=== PATIENT | male | born 1955 | race Caucasian/White ===

== ENCOUNTER 2017-05-26 03:28 | Emergency (ER) | payer MEDICARE, SELFPAY ==
[2017-05-26 03:31] VITALS: BP 167/95; PULSE 103; RESP 22; TEMP 36.3; O2SAT 97; BMI 28.1
--- NOTE | 2017-05-26 03:47 | ED.VISSUMM ---
- ER Visit Summary Date of Service: 05/26/17 Chief Complaint: Possible MRSA History of Present Illness: The patient is a 62 M who nicked his left index finger about a week ago. He does not remember exactly how this happened. 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 He states he took some Bactrim that a friend got some extra from a clinic. He is only taken 1 dose. Today he noticed a swollen lymph node in his left armpit so was more concerned and presented here. He has noticed increased pain and swelling over the last 2 days. He has noticed some drainage as well. He denies fevers nausea vomiting or systemic symptoms. Physical Examination: Afebrile heart rate 103 respiratory rate 22 There is an open wound over the pad of the left index finger with surrounding erythema and purulent drainage I do not appreciate fluctuance or circumferential swelling to suggest felon. Test Results: Not indicated Emergency Department Course and Treatment: Patient was placed on Keflex and Bactrim. He was advised to follow-up with his primary care physician. He understands to return for new or worsening symptoms. He was discharged. Treatment Plan: [] Disposition: Discharge Impression: Wound infection Cellulitis left index finger This note was generated with [employer] dictation software. It may contain incorrect words, spelling, and punctuation that were not noted in review of the chart prior to signing ED Disposition - Plan for ED Patient: Chief Complaint: Upper Extremity Injury Referrals: Care Physician,No Primary [Primary Care Provider] -
--- NOTE | 2017-05-26 03:49 | ED.DEP ---
ED Disposition - Plan for ED Patient: Chief Complaint: Upper Extremity Injury Instructions: ED Wound Check Laceration FU Infec, ED Infec Skin Cellulitis Prescriptions: Cephalexin [Keflex] 500 mg PO Q6 #40 cap Smz/Tmp Ds [Bactrim Ds] 1 tab PO BID #20 tab Referrals: Care Physician,No Primary [Primary Care Provider] - Dean Hernandez MD [Family Provider] -
[2017-05-26 04:12] VITALS: BP 160/90; PULSE 90; O2SAT 98
== END 2017-05-26 04:13 | disposition home or self-care (01) ==
LOC: ED 04:08
PROVIDERS: Emergency Provider Emergency Medicine; Family Provider Internal Medicine; PCP Internal Medicine
DX: S61.201A Unspecified open wound of left index finger without damage to nail, initial encounter (principal); L03.012 Cellulitis of left finger; R59.0 Localized enlarged lymph nodes; X58.XXXA Exposure to other specified factors, initial encounter; Y93.9 Activity, unspecified; Y92.9 Unspecified place or not applicable; Z86.14 Personal history of Methicillin resistant Staphylococcus aureus infection; Z86.79 Personal history of other diseases of the circulatory system; Z72.0 Tobacco use
CPT/HCPCS: 99282

== ENCOUNTER 2018-01-18 12:40 | Emergency (ER) | payer MEDICARE, SELFPAY ==
[2018-01-18 12:43] VITALS: BP 184/102; PULSE 98; RESP 18; TEMP 36.8; O2SAT 97; BMI 26.4
[2018-01-18 12:50] VITALS: BP 150/98; PULSE 97; RESP 18; O2SAT 97
[2018-01-18] MEDS: MethylPREDNISolone 125 MG/2 ML Vial IV (13:42)
[2018-01-18 13:45] VITALS: BP 147/81; PULSE 84; RESP 15; O2SAT 99
[2018-01-18 14:23] VITALS: BP 147/86; PULSE 84; RESP 16; O2SAT 95
[2018-01-18 15:07] VITALS: BP 153/81; PULSE 83; RESP 17; O2SAT 98
--- NOTE | 2018-01-18 16:04 | ED.VISSUMM ---
- ER Visit Summary Date of Service: 01/18/18 Chief Complaint: Bee sting History of Present Illness: The patient is a 62 M was eating a sandwich and did not notice to be, he got started on his tongue. He does not feel his throat swelling he has no change in voice. He had some itching on his skin but that has resolved. No nausea or vomiting. Physical Examination: Not appear in acute distress. There is slight swelling of the tongue and lips. Soft palate is unremarkable he is speaking in a normal voice he has no stridor. He is no other signs of edema. No C-spine tenderness supple neck. Regular rate and rhythm without any obvious murmurs Clear lungs bilaterally speaking in full sentences without any obvious respiratory distress Abdomen soft and nontender no guarding or rebound Moves all extremities without any difficulty or pain. Skin does not show any obvious rashes or lesions, no trauma. No urticaria Alert oriented ?3 with no gross focal deficit Emergency Department Course and Treatment: Patient does not meet criteria for anaphylaxis, he took Benadryl at home, he was given Solu-Medrol and Pepcid in the ED and observed his swelling is almost completely resolved he wishes to be discharged. He will be discharged in stable condition. Impression: Hymenoptera envenomation This note was generated with [employer] dictation software. It may contain incorrect words, spelling, and punctuation that were not noted in review of the chart prior to signing ED Disposition - Plan for ED Patient: Disposition: Home or Assisted Living Chief Complaint: Allergic Reaction Instructions: ED Bite Sting Insect Local Allergic React Referrals: Dean Hernandez MD [Primary Care Provider] - 3-5 Days
--- NOTE | 2018-01-18 16:07 | ED.DCSUM_ITS ---
- ER Visit Summary Date of Service: 01/18/18 Chief Complaint: Bee sting History of Present Illness: The patient is a 62 M was eating a sandwich and did not notice to be, he got started on his tongue. He does not feel his throat swelling he has no change in voice. He had some itching on his skin but that h as resolved. No nausea or vomiting. Physical Examination: Not appear in acute distress. There is slight swelling of the tongue and lips. Soft palate is unremarkable he is speaking in a normal voice he has no stridor. He is no other signs of edema. No C-spine tenderness supple neck. Regular rate and rhythm without any obvious murmurs Clear lungs bilaterally speaking in full sentences without any obvious respiratory distress Abdomen soft and nontender no guarding or rebound Moves all extremities without any difficulty or pain. Skin does not show any obvious rashes or lesions, no trauma. No urticaria Alert oriented ?3 with no gross focal deficit Emergency Department Course and Treatment: Patient does not meet criteria for anaphylaxis, he took Benadryl at home, he was given Solu-Medrol and Pepcid in the ED and observed his swelling is almost completely resolved he wishes to be discharged. He will be discharged in stable condition. Impression: Hymenoptera envenomation This note was generated with [employer] dictation software. It may contain incorrect words, spelling, and punctuation that were not noted in review of the chart prior to signing ED Disposition - Plan for ED Patient: Disposition: Home or Assisted Living Chief Complaint: Allergic Reaction Instructions: ED Bite Sting Insect Local Allergic React Referrals: Dean Hernandez MD [Primary Care Provider] - 3-5 Days
[2018-01-18 16:16] VITALS: BP 144/84; PULSE 73; RESP 17; O2SAT 97
== END 2018-01-18 16:17 | disposition home or self-care (01) ==
PROVIDERS: Emergency Provider Emergency Medicine; Family Provider Internal Medicine; PCP Internal Medicine
DX: T63.441A Toxic effect of venom of bees, accidental (unintentional), initial encounter (principal); R22.0 Localized swelling, mass and lump, head; Y92.9 Unspecified place or not applicable
CPT/HCPCS: 96365; 96374; 99282; J7030; A4216; J3490

== ENCOUNTER 2019-10-06 11:33 | Emergency (ER) | payer MEDICARE, SELFPAY ==
[2019-10-06 11:37] VITALS: BP 184/98; PULSE 109; RESP 18; TEMP 37.1; O2SAT 99; BMI 27.7
--- NOTE | 2019-10-06 12:04 | RAD_ITS ---
STUDY: X-RAY CHEST REASON FOR EXAM: Male, 64 years old. PT HAS DONE METH X 5 YEARS, LAST USE THIS MORNING, PARANOIA, TACHYCARDIA TECHNIQUE: Single AP portable view of the chest. COMPARISON: None. FINDINGS: The lungs are clear and expanded. There is no demonstrated pleural abnormality. Normal size heart. Normal mediastinum and jenny. Normal visualized pulmonary arteries. Normal visualized aortic arch and descending thoracic aorta. Normal visualized thoracic spine. Normal visualized ribs, clavicles, and shoulders. There is no demonstrated abnormality of the visualized soft tissue structures of the upper abdomen. RAD/Chest 1 View (Portable) IMPRESSION: Normal x-ray examination of the chest. Electronically Signed: Carlos Beasley MD at 12:46 EDT , Service support ,
--- NOTE | 2019-10-06 12:06 | ED.VIS.GEN ---
History of Present Illness Chief Complaint: Substance Abuse Informant: Patient Onset: Days Context: Gradual Onset Timing: Intermittent Narrative: Patient is a 64-year-old male with history of IV drug abuse presenting with intermittent auditory hallucinations. Patient states he has been using meth frequently over the past 3 days. He states he injects it. Patient states he has been hearing voices through the stern are plotting against him. Patient states he normally feels safe at home. He called 180 today who was not sure exactly how to handle him so they sent him to the emergency room. Patient denies any homicidal suicidal ideations. He also states that he is concerned he is dehydrated. Denies any associated chest pain, shortness of breath or difficulty breathing. He denies any other complaints at this time. He denies hearing any voices at this moment. Past Medical History - Allergies and Home Meds Allergies/Adverse Reactions: Allergies codeine Allergy (Verified 10/06/19 11:40) Unknown Primary Care Physician: Dean Hernandez MD [Primary Care Provider] - [employer] [STAFF PHYSICIAN] - Past Medical History: - - Chronic low back pain, drug abuse Surgical History: noncontributory Smoking Status: Current every day smoker Drugs: - - Methamphetamines Review of Systems General: Reports: Malaise. Denies: Chills, Fever, Sweats Eyes: Denies: Visual changes - bilaterally, Diplopia ENT: Denies: Rhinorrhea, Sore throat Cardiovascular: Denies: Chest pain, Palpitations Respiratory: Denies: Dyspnea, Cough, Dyspnea on exertion Gastrointestinal: Denies: Abdominal pain, Nausea, Vomiting, Diarrhea, Melena, Hematochezia Genitourinary: Denies: Dysuria, Hematuria, Frequency Musculoskeletal: Denies: Back pain, Extremity Pain Skin: Denies: Rash, Wounds Neurological: Denies: Headache, Weakness, Numbness Psych: Reports: Anxiety, - - Auditory hallucinations, paranoia. Denies: Depression, Suicidal thoughts, Suicidal ideations Physical Exam Vital Signs/Narrative: Vital Signs Temp Pulse Resp BP Pulse Ox 10/06/19 11:37 98.7 F 109 H 18 184/98 H 99 Inital Vital Signs reviewed: Yes General: Well nourished, Well developed, No Acute Distress Head: Normocephalic, Atraumatic Eyes: Perrl, EOMI ENT: Moist mucous membranes, No rhinorrhea, TM's clear Neck: Supple, Nontender Cardiovascular: Regular rhythm, No murmurs, Tachycardia Respiratory: No distress, CTA bilaterally, Chest nontender Abdomen: Soft, Nontender, Nondistended, Normal bowel sounds Back: Nontender, Normal Inspection Extremities: Nontender, No edema Skin: Normal color, No rash Neurological: Alert, Oriented x3, Cranial nerves II-XII grossly intact, Normal Strength, Normal Sensation Psychological: Normal affect, Normal Mood, - - Patient slightly anxious but behaving appropriately in the emergency room. Seems to have insight into his situation. Currently denies any auditory hallucinations and does not seem internally stimulated. Diagnostic/Tx/Re-eval Clinical Impression(s) from Imaging Studies Chest X-Ray 10/06/19 12:04 IMPRESSION: Normal x-ray examination of the chest. Electronically Signed: Carlos Beasley MD at 12:46 EDT , Service support , Laboratory Data 10/06/19 10/06/19 10/06/19 12:18 12:18 12:24 WBC RBC Hgb Hct MCV MCH MCHC RDW Std Deviation RDW Coeff of Cosmo Plt Count MPV Immature Gran % (Auto) Neut % (Auto) Lymph % (Auto) Mcminn % (Auto) Eos % (Auto) Baso % (Auto) Absolute Neuts (auto) Absolute Lymphs (auto) Nucleated RBC % Sodium 138 Potassium 3.2 L Chloride 105 Carbon Dioxide 27.0 Anion Gap 6 BUN 19 H Creatinine 0.74 Estim Creat Clear Calc 100.14 Est GFR (MDRD) Af Amer 139 Est GFR (MDRD) Non-Af 115 BUN/Creatinine Ratio 25.8 H Glucose 93 Calcium 9.1 Total Creatine Kinase TSH 1.41 Urine Color Yellow Urine Clarity Clear Urine pH 5.0 Ur Specific Eastman 1.020 Urine Protein 30 H Urine Glucose (UA) Normal Urine Ketones 5 H Urine Occult Blood 25 H Urine Nitrite Negative Urine Bilirubin Negative Urine Urobilinogen 1 H Ur Leukocyte Esterase 25 H Urine RBC 0-5 SEEN Urine WBC 0-5 SEEN Ur Squamous Epith Cells 0 SEEN Urine Bacteria 1+ Hyaline Casts 0-5 SEEN Urine Mucus 2+ Urine Opiates Screen NEGATIVE Urine Methadone Screen NEGATIVE Ur Barbiturates Screen NEGATIVE Ur Phencyclidine Scrn NEGATIVE Ur Amphetamines Screen POSITIVE H U Methamphetamin-MDMA POSITIVE H U Benzodiazepines Scrn NEGATIVE Urine Cocaine Screen NEGATIVE U Cannabinoids Screen NEGATIVE Ur Drug Screen Comment Ethyl Alcohol 10/06/19 10/06/19 10/06/19 12:24 12:24 12:24 WBC 7.1 RBC 4.77 Hgb 15.5 Hct 44.4 MCV 93.1 MCH 32.5 H MCHC 34.9 RDW Std Deviation 43.7 RDW Coeff of Cosmo 12.8 Plt Count 137 L MPV 9.3 Immature Gran % (Auto) 0.100 Neut % (Auto) 69.4 Lymph % (Auto) 18.1 L Mcminn % (Auto) 10.5 H Eos % (Auto) 1.5 Baso % (Auto) 0.4 Absolute Neuts (auto) 5.0 Absolute Lymphs (auto) 1.29 Nucleated RBC % 0 Sodium Potassium Chloride Carbon Dioxide Anion Gap BUN Creatinine Estim Creat Clear Calc Est GFR (MDRD) Af Amer Est GFR (MDRD) Non-Af BUN/Creatinine Ratio Glucose Calcium Total Creatine Kinase 283 TSH Urine Color Urine Clarity Urine pH Ur Specific Eastman Urine Protein Urine Glucose (UA) Urine Ketones Urine Occult Blood Urine Nitrite Urine Bilirubin Urine Urobilinogen Ur Leukocyte Esterase Urine RBC Urine WBC Ur Squamous Epith Cells Urine Bacteria Hyaline Casts Urine Mucus Urine Opiates Screen Urine Methadone Screen Ur Barbiturates Screen Ur Phencyclidine Scrn Ur Amphetamines Screen U Methamphetamin-MDMA U Benzodiazepines Scrn Urine Cocaine Screen U Cannabinoids Screen Ur Drug Screen Comment Ethyl Alcohol < 3.0 - Medical Decision Making Patient is evaluated for increase paranoia. Patient admits to associated methamphetamine abuse. Likely this is the cause of his paranoia. Physical exam is benign. He is able to concentrate answer questions appropriately. He denies any homicidal suicidal ideation. He states he wants help but does not want to go to inpatient psych at this time. Patient is evaluated by case management who also discussed the case with [facility]. Patient was at [facility] earlier today. Patient will be discharged home to follow-up at [facility] on day with his counselor, Darius Garcia. In addition he is encouraged to call [facility] throughout the weekend and on Wednesday as needed. Patient is given 1 dose of IV Ativan which seems to relax him significantly. Patient is medically cleared. I do not think he requires any inpatient medical work-up at this time. Patient's cousin will be able to stay with him and will pick him up from the ER. ED Disposition - Plan for ED Patient: Disposition: Home or Assisted Living Diagnosis: Methamphetamine abuse, Paranoia Instructions: ED AMPHETAMINE ABUSE Referrals: Dean Hernandez MD [Primary Care Provider] - [employer] [STAFF PHYSICIAN] - Additional Instructions: Follow-up with Darius Garcia at [facility]. Call to arrange an appointment. Call 180 for further drug abuse assistance. Return the emergency room with any worsening symptoms or if you do not feel safe at home.
[2019-10-06] MEDS: 0.9% Normal Saline 1,000 ML 999 ML IV (12:29)
[2019-10-06 12:31] LABS: Squamous Epithelial Cells - UA 0 SEEN /hpf (0-5)
[2019-10-06 12:32] LABS: Color, Urine Yellow (Yellow); Glucose, Dipstick Normal (Normal); Ketone-Dipstick 5 mg/dl (Negative); Leukocyte Esterase-Dipstick 25 /ul (Negative); Nitrite-Dipstick Negative (Negative); Occult Blood-Urine 25 /ul (Negative); Protein-Dipstick 30 mg/dl (Negative); Urine Bilirubin Dipstick Negative (Negative); Urine Clarity Clear (Clear); Urine Urobilinogen 1 mg/dl (Normal)
[2019-10-06 12:38] LABS: Bacteria 1+ /hpf (None Seen); White Blood Cells 0-5 SEEN /hpf (0-5)
[2019-10-06 12:39] LABS: Hyaline Cast 0-5 SEEN /lpf (0-5); Mucous, Urine 2+ /hpf (<or=2+); Red Blood Cells-Urine 0-5 SEEN /hpf (0-5)
[2019-10-06 12:39] LABS: Absolute Lymphocyte Count 1.29 X10^3/uL (0.83-4.51); Basophil# 0.03 X10^3/uL; Basophil% 0.4 % (0-1); Eosinophil# 0.11 X10^3/uL; Eosinophils% 1.5 % (0-5); Hematocrit 44.4 % (40-54); Hemoglobin 15.5 g/dL (13.0-16.5); Lymphocyte # 1.29 X10^3/ul (4.0); Lymphocyte % 18.1 % (19-41); Mean Corp Hgb Conc 34.9 g/dL (32-36); Mean Corpuscular Hgb 32.5 pg (27.0-32.0); Mean Corpuscular Volume 93.1 fL (80-94); Mean Platelet Vol. 9.3 fl (6.2-12.0); Monocyte# 0.75 X10^3/uL; Monocyte% 10.5 % (0-10); NRBC Flagged by Analyzer 0 % (0-5); Neutrophil # 4.95 X10^3/uL (2.7-7.7); Neutrophil % 69.4 % (47-70); Platelet Count 137 K/mm3 (150-450); RBC Distribution Width CV 12.8 % (11.6-14.6); RBC Distribution Width SD 43.7 fl (35.1-43.9); Red Blood Count 4.77 M/mm3 (4.6-6.2); White Blood Count 7.1 K/mm3 (4.4-11.0)
[2019-10-06 12:54] LABS: Amphetamine Urine VISTA POSITIVE (<1000 ng/mL); Barbiturate Urine VISTA NEGATIVE (< 200 ng/mL); Benzodiazepine Urine VISTA NEGATIVE (< 200 ng/mL); Cocaine Urine VISTA NEGATIVE (< 300 ng/mL); Ecstacy Urine VISTA POSITIVE (< 500 ng/mL); Methadone Urine VISTA NEGATIVE (< 300 ng/mL); PCP Urine VISTA NEGATIVE (< 25 ng/mL); THC Urine VISTA NEGATIVE (< 50 ng/mL); Vista UDS pH Range 5
[2019-10-06 13:01] LABS: Anion Gap 6 (5-15); BUN 19 mg/dL (7-18); BUN/Creat Ratio 25.8 RATIO (10-20); Calcium,Total 9.1 mg/dL (8.5-10.1); Chloride 105 mmol/L (98-107); Creatinine, Serum 0.74 mg/dL (0.70-1.30); EST Glomerular Filtration Rate 115 mL/min (>60); Est Glom Filt Rate - Afr Amer 139 mL/min (>60); Estimated Creatinine Clearance 100.14 ml/min; Glucose 93 mg/dL (74-106); Potassium 3.2 mmol/L (3.5-5.1); Sodium Level 138 mmol/L (136-145); Thyroid Stim Hormone (TSH) 1.41 uIU/mL (0.358-3.74)
[2019-10-06 13:02] LABS: Alcohol, Blood (Medical)-Serum < 3.0 mg/dL
[2019-10-06 13:12] LABS: CPK Total, Creatine Kinase 283 U/L (39-308)
[2019-10-06 13:50] VITALS: BP 174/92; RESP 18
--- NOTE | 2019-10-06 14:40 | CM.ED ---
SOCIAL WORK Informant: Dr. Wasserman Reason for Consult: Substance Abuse Chief complaint: Patient reports used bad meth. Living Situation: Patient lives in a camper on cousins property Employment: Disabled Mental Health Treatment/History: Patient denies any history of mental health. Substance Abuse Treatment/History: Patient for 20 years was addicted to crack cocaine. Patient states quit crack cocaine 5-7 years ago with the help of inpatient treatment at [facility]. Patient states for the last 5 years has had a history of meth use. Patient reports was in recovery from May till 3 days ago when he relapsed. Patient states last use of meth was this morning. Patient reports the meth was real trippy, not speedy. Patient states was having auditory and visual hallucinations. Patient reports these people were setting me up for different things. Patient states has been following with [facility] and was at [facility] today. Assessment: Met with patient in room. Introduced role and reason for referral. Patient discussed history of substance abuse. Patient stating I'm not 27 anymore. I gotta quit this. Much encouragement and support provided. Patient is on probation in [facility] and [facility]. Discussed outpatient treatment. Patient inquiring about inpatient treatment for meth. Informed patient this worker would follow up with inpatient facility. Patient also gave permission for this worker to speak with cousinSita ([phone]). Call to [facility]. Per Sita, patient with long history of substance abuse. Sita denies any mental health history for patient. Sita khan patient was released from half-way on May 26, disappeared for a few days and when he came back quit using substances. Sita [facility] patient is paranoid with use and states she has been researching meth use and addiction. Support provided. Informed this worker will provide patient with resources and per patient's request will look into inpatient treatment. Call to [facility] to inquire about detox program. Per worker, there is not detox for meth. As patient is not dual diagnosis, patient denies any history of mental health, does not meet criteria for admission. Updated patient on the above. Patient in agreement to follow up with outpatient services on Wednesday. Collaboration with Dr. Wasserman. Dr. Wasserman in agreement with outpatient follow up. Plan: Home with follow up at [facility] and [facility] Brian. Danuta, DENTAL ASSISTANT TEACHER, KIDS ACTIVITIES COACH
[2019-10-06 15:00] VITALS: BP 181/101; PULSE 104; RESP 18; O2SAT 100
[2019-10-06] MEDS: LORazepam 2 MG/ML Syringe 1 MG IV (15:15)
[2019-10-06 17:03] VITALS: BP 131/77; PULSE 62; RESP 15; O2SAT 98
== END 2019-10-06 17:04 | disposition home or self-care (01) ==
PROVIDERS: Emergency Provider Emergency Medicine; PCP Internal Medicine
DX: F15.10 Other stimulant abuse, uncomplicated (principal); F22 Delusional disorders; F17.200 Nicotine dependence, unspecified, uncomplicated
CPT/HCPCS: 71045; 80048; 80307; 80320; 81001; 82550; 84443; 85025; 96361; 96374; 99285; J7030; A4216; G0480

== ENCOUNTER 2020-03-20 07:29 | Emergency (ER) | payer MEDICARE, SELFPAY ==
[2020-03-20] VITALS (10 sets, daily range): BP systolic 111–194; BP diastolic 72–100; PULSE 93–120; RESP 15–40; TEMP 36.4; O2SAT 94–99; BMI 29.7
--- NOTE | 2020-03-20 07:48 | CT_ITS ---
STUDY: CT BRAIN WITHOUT CONTRAST REASON FOR EXAM: Male, 64 years old. ALTERED MENTAL STATUS -- COUGH/SOB -- +DRUG ABUSE TODAY--HEROIN/METH/SPEED RADIATION DOSAGE (If Supplied By Facility): CTDIvol = ( 44.99 ) mGy, DLP = ( 846.73 ) mGycm TECHNIQUE: Transaxial CT imaging of the brain was performed without administration of intravenous contrast material. Individualized dose optimization techniques were used for this CT. COMPARISON: No relevant priors. FINDINGS: Normal soft tissue structures. Normal calvarium. Normal size ventricles and extra-axial spaces for the patient''s age. Normal white matter tracts of the cerebral hemispheres. Normal basal ganglia and thalami. Normal brainstem. Normal cerebellum. There is no intracranial hemorrhage. There are no findings of an acute ischemic infarction. Normal visualized paranasal sinuses. CT/Brain/Head without Contrast IMPRESSION: Normal unenhanced CT scan of the brain. Electronically Signed: Roddy Mcguire, at 11:12 EST , Service support ,
--- NOTE | 2020-03-20 07:48 | EKG12_ITS ---
Test Reason : Blood Pressure : / mmHG Vent. Rate : 101 BPM Atrial Rate : 101 BPM P-R Int : 148 ms QRS Dur : 098 ms QT Int : 376 ms P-R-T Axes : 043 -51 048 degrees QTc Int : 487 ms Sinus tachycardia Left anterior fascicular block Inferior infarct , age undetermined Abnormal ECG Confirmed by SUE TORO, GERARD ([id number]), aeronautical engineering technologist CHERI GREENBERG ([id number]) on 03/22/2020 2:01:09 PM Referred By: PREETHI Confirmed By:GERARD ROGERS MD
--- NOTE | 2020-03-20 07:50 | ED.DCSUM_ITS ---
History of Present Illness Chief Complaint: Headache Informant: Patient Narrative: Limited history from the patient, he states that he is here because he was doing dope. When asked what drugs he was doing, he states what ever they had, probably meth but I do not know what it was. He answers questions, his volume starts normal and then it decreases to where he is mumbling quickly and it is unintelligible but he is keenly alert. When asked to repeat, he is telling me that he is frustrated, using expletives at me, because he is having to repeat things, and is somewhat agitated, lying down in the bed with his knees bent and feet hanging over the edge. He states he feels like his chest is heavy and he feels a little short of breath. He vomited earlier but does not feel nauseated anymore although that history changes during the interview. He cannot tell me anything about his past medical history. Past Medical History - Allergies and Home Meds Allergies/Adverse Reactions: Allergies codeine Allergy (Verified 10/06/19 11:40) Unknown Primary Care Physician: Dean Hernandez MD [Primary Care Provider] - Past Medical History: - - Unknown Smoking Status: Current every day smoker Drugs: - - Unknown Review of Systems ROS: Unable to Obtain - Limited evaluation, see below Cardiovascular: Reports: Chest pain Respiratory: Reports: Dyspnea. Denies: Cough Gastrointestinal: Reports: Nausea, Vomiting. Denies: Abdominal pain Musculoskeletal: Denies: Back pain, Extremity Pain Skin: Denies: Rash, Abscess Neurological: Reports: Headache - Mild per patient. Denies: Numbness Physical Exam Vital Signs/Narrative: Vital Signs Temp Pulse Resp BP Pulse Ox 03/20/20 07:32 97.5 F L 120 H 40 H 194/100 H 99 Inital Vital Signs reviewed: Yes General: Well nourished, Well developed, No Acute Distress Head: Normocephalic, Atraumatic Eyes: Perrl - Pinpoint pupils, EOMI ENT: Moist mucous membranes, No rhinorrhea Neck: Supple, Nontender Cardiovascular: Regular rate, Regular rhythm, No murmurs Respiratory: No distress, CTA bilaterally, Chest nontender Abdomen: Soft, Nontender, Nondistended, Normal bowel sounds Back: Nontender, Normal Inspection. Negative for: CVA tenderness Extremities: Nontender, No edema Skin: Normal color, No rash, Diaphoresis, No Trauma Neurological: Alert, Oriented x3 - Two-thousand f'ing twenty, Cranial nerves II-XII grossly intact, Normal Strength, Normal Sensation Psychological: Agitated - But cooperative to some degree and not combative. No specific movements/chorea/posturing or tardive dyskinesia. Diagnostic/Tx/Re-eval Impressions Brain CT 03/20/20 07:48 IMPRESSION: Normal unenhanced CT scan of the brain. Electronically Signed: Roddy Mcguire, at 11:12 EST , Service support , Chest X-Ray 03/20/20 08:38 IMPRESSION: Normal x-ray examination of the chest. Electronically Signed: Roddy Mcguire, at 9:03 EST , Service support , 03/20/20 07:48 Brain/Head without Contrast [CT] Stat 03/20/20 08:38 Chest 1 View (Portable) [RAD] Stat 03/20/20 08:01 Mucosa - Nose SARS-CoV-2 Antigen (Rapid) - Final - NEGATIVE Laboratory Tests 03/20/20 03/20/20 03/20/20 Range/Units 14:40 14:40 09:50 WBC (4.4-11.0) K/mm3 RBC (4.6-6.2) M/mm3 Hgb (13.0-16.5) g/dL Hct (40-54) % MCV (80-94) fL MCH (27.0-32.0) pg MCHC (32-36) g/dL RDW Std Deviation (35.1-43.9) fl RDW Coeff of Cosmo (11.6-14.6) % Plt Count (150-450) K/mm3 MPV (6.2-12.0) fl Immature Gran % (Auto) (0.0-0.9) % Neut % (Auto) (47-70) % Lymph % (Auto) (19-41) % Vance % (Auto) (0-10) % Eos % (Auto) (0-5) % Baso % (Auto) (0-1) % Absolute Neuts (auto) (2.0-7.7) X10^3/uL Absolute Lymphs (auto) (0.83-4.51) X10^3/uL Nucleated RBC % (0-5) % Sodium (136-145) mmol/L Potassium (3.5-5.1) mmol/L Chloride (98-107) mmol/L Carbon Dioxide (21.0-32.0) mmol/L Anion Gap (5-15) BUN (7-18) mg/dL Creatinine (0.70-1.30) mg/dL Estim Creat Clear Calc ml/min Est GFR (MDRD) Af Amer (>60) mL/min Est GFR (MDRD) Non-Af (>60) mL/min BUN/Creatinine Ratio (10-20) RATIO Glucose (74-106) mg/dL Calcium (8.5-10.1) mg/dL Total Bilirubin (0.20-1.00) mg/dL AST (15-37) U/L ALT (16-61) U/L Alkaline Phosphatase (45-117) U/L Troponin I (<0.045) ng/mL Total Protein (6.4-8.2) g/dL Albumin (3.2-5.0) g/dL Globulin (2.2-4.2) g/dL Albumin/Globulin Ratio (0.9-2.4) RATIO Urine Color Yellow (Yellow) Urine Clarity Sl. Cloudy (Clear) Urine pH 5.0 (5.0 - 8.0) Ur Specific [place] 1.030 (1.002-1.030) Urine Protein 30 H (Negative) mg/dl Urine Glucose (UA) Normal (Normal) mg/dl Urine Ketones 50 H (Negative) mg/dl Urine Occult Blood 10 H (Negative) /ul Urine Nitrite Negative (Negative) Urine Bilirubin Negative (Negative) mg/dL Urine Urobilinogen Normal (Normal) mg/dl Ur Leukocyte Esterase 25 H (Negative) /ul Urine RBC 0-5 SEEN (0-5) /hpf Urine WBC 0-5 SEEN (0-5) /hpf Ur Squamous Epith Cells 0-5 SEEN (0-5) /hpf Urine Bacteria 1+ (None Seen) /hpf Hyaline Casts 0-5 SEEN (0-5) /lpf Urine Mucus 1+ (<or=2+) /hpf Urine Opiates Screen NEGATIVE (< 300 ng/mL) Urine Methadone Screen NEGATIVE (< 300 ng/mL) Ur Barbiturates Screen NEGATIVE (< 200 ng/mL) Ur Phencyclidine Scrn NEGATIVE (< 25 ng/mL) Ur Amphetamines Screen POSITIVE H (<1000 ng/mL) U Methamphetamin-MDMA POSITIVE H (< 500 ng/mL) U Benzodiazepines Scrn NEGATIVE (< 200 ng/mL) Urine Cocaine Screen NEGATIVE (< 300 ng/mL) U Cannabinoids Screen NEGATIVE (< 50 ng/mL) Ur Drug Screen Comment Ethyl Alcohol < 3.0 mg/dL 03/20/20 03/20/20 Range/Units 09:50 09:50 WBC 7.9 (4.4-11.0) K/mm3 RBC 4.55 L (4.6-6.2) M/mm3 Hgb 14.8 (13.0-16.5) g/dL Hct 41.6 (40-54) % MCV 91.4 (80-94) fL MCH 32.5 H (27.0-32.0) pg MCHC 35.6 (32-36) g/dL RDW Std Deviation 44.7 H (35.1-43.9) fl RDW Coeff of Cosmo 13.2 (11.6-14.6) % Plt Count 119 L (150-450) K/mm3 MPV 10.8 (6.2-12.0) fl Immature Gran % (Auto) 0.300 (0.0-0.9) % Neut % (Auto) 79.6 H (47-70) % Lymph % (Auto) 11.9 L (19-41) % Vance % (Auto) 6.6 (0-10) % Eos % (Auto) 1.3 (0-5) % Baso % (Auto) 0.3 (0-1) % Absolute Neuts (auto) 6.3 (2.0-7.7) X10^3/uL Absolute Lymphs (auto) 0.94 (0.83-4.51) X10^3/uL Nucleated RBC % 0 (0-5) % Sodium 139 (136-145) mmol/L Potassium 4.3 (3.5-5.1) mmol/L Chloride 108 H (98-107) mmol/L Carbon Dioxide 24.0 (21.0-32.0) mmol/L Anion Gap 7 (5-15) BUN 22 H (7-18) mg/dL Creatinine 1.00 (0.70-1.30) mg/dL Estim Creat Clear Calc 71.61 ml/min Est GFR (MDRD) Af Amer 97 (>60) mL/min Est GFR (MDRD) Non-Af 80 (>60) mL/min BUN/Creatinine Ratio 22.0 H (10-20) RATIO Glucose 103 (74-106) mg/dL Calcium 8.8 (8.5-10.1) mg/dL Total Bilirubin 1.30 H (0.20-1.00) mg/dL AST 36 (15-37) U/L ALT 33 (16-61) U/L Alkaline Phosphatase 61 (45-117) U/L Troponin I < 0.015 (<0.045) ng/mL Total Protein 8.3 H (6.4-8.2) g/dL Albumin 4.2 (3.2-5.0) g/dL Globulin 4.1 (2.2-4.2) g/dL Albumin/Globulin Ratio 1.0 (0.9-2.4) RATIO Urine Color (Yellow) Urine Clarity (Clear) Urine pH (5.0 - 8.0) Ur Specific [place] (1.002-1.030) Urine Protein (Negative) mg/dl Urine Glucose (UA) (Normal) mg/dl Urine Ketones (Negative) mg/dl Urine Occult Blood (Negative) /ul Urine Nitrite (Negative) Urine Bilirubin (Negative) mg/dL Urine Urobilinogen (Normal) mg/dl Ur Leukocyte Esterase (Negative) /ul Urine RBC (0-5) /hpf Urine WBC (0-5) /hpf Ur Squamous Epith Cells (0-5) /hpf Urine Bacteria (None Seen) /hpf Hyaline Casts (0-5) /lpf Urine Mucus (<or=2+) /hpf Urine Opiates Screen (< 300 ng/mL) Urine Methadone Screen (< 300 ng/mL) Ur Barbiturates Screen (< 200 ng/mL) Ur Phencyclidine Scrn (< 25 ng/mL) Ur Amphetamines Screen (<1000 ng/mL) U Methamphetamin-MDMA (< 500 ng/mL) U Benzodiazepines Scrn (< 200 ng/mL) Urine Cocaine Screen (< 300 ng/mL) U Cannabinoids Screen (< 50 ng/mL) Ur Drug Screen Comment Ethyl Alcohol mg/dL - Rhythm Strip Rhythm Strip: Sinus Tach Rate: 110 Ectopy: None - EKG Initial EKG Interpretation: No Acute Injury Pattern, Sinus Tachycardia, LAFB Prior: No Prior - Medical Decision Making Patient was very agitated and we were not able to complete medical screening exam due to his agitation and relative lack of cooperation. This includes obtaining an IV, blood work, imaging. Therefore he was given Ativan 2 mg IM which did help, and we then proceeded to complete the work-up which was unremarkable with the exception of urine drug screen since we were not given a urine specimen. His vital signs improved as follows: Blood pressure 145/72, pulse 93, respirations 16, pulse ox 95 on room air, temp 97.5. His blood pressure came down to this, and was even in the 120s at one point, without giving him labetalol, that was held. Initially his blood pressure was extremely high in the 190s, and certainly there was concern for cerebral hemorrhage given his condition although CT ruled that out. I reexamination after the patient slept through the lorazepam, he is still little disoriented but able to respond to questions, but he was not able to urinate and was okay with a straight cath which nurses performed. This showed presence of methamphetamine. No sign of urinary tract infection. At this time when the patient is coherent enough to walk and talk on his own, he can call for a ride home. ED Disposition - Plan for ED Patient: Disposition: Home or Assisted Living Diagnosis: Methamphetamine abuse, Delirium due to methamphetamine intoxication Instructions: ED Drug Abuse Referrals: Dean Hernandez MD [Primary Care Provider] - As Needed [facility] [STAFF PHYSICIAN] - As Needed (for addiction issues/help)
--- NOTE | 2020-03-20 08:38 | RAD_ITS ---
STUDY: X-RAY CHEST REASON FOR EXAM: Male, 64 years old. Coughing, c/o rowan, nausea, sob TECHNIQUE: Single AP portable view of the chest. COMPARISON: Comparison is made with prior study dated 10/06/2019. FINDINGS: EKG electrodes are seen. The lungs are clear and expanded. There is no demonstrated pleural abnormality. Normal size heart. Normal mediastinum and jenny. Normal visualized pulmonary arteries. Normal visualized aortic arch and descending thoracic aorta. Normal visualized thoracic spine. Normal visualized ribs, clavicles, and shoulders. There is no demonstrated abnormality of the visualized soft tissue structures of the upper abdomen. RAD/Chest 1 View (Portable) IMPRESSION: Normal x-ray examination of the chest. Electronically Signed: Roddy Mcguire, at 9:03 EST , Service support ,
[2020-03-20] MEDS: LORazepam 2 MG/ML Syringe IM (08:39)
[2020-03-20] MEDS: Labetalol (Prefilled) 20 MG/4 ML 10 MG IV (10:00)
[2020-03-20 10:05] LABS: Absolute Lymphocyte Count 0.94 X10^3/uL (0.83-4.51); Absolute Neutrophil Count 6.3 X10^3/uL (2.0-7.7); Basophil# 0.02 X10^3/uL; Basophil% 0.3 % (0-1); Eosinophils% 1.3 % (0-5); Hematocrit 41.6 % (40-54); Hemoglobin 14.8 g/dL (13.0-16.5); Lymphocyte # 0.94 X10^3/ul (4.0); Lymphocyte % 11.9 % (19-41); Mean Corp Hgb Conc 35.6 g/dL (32-36); Mean Corpuscular Hgb 32.5 pg (27.0-32.0); Mean Corpuscular Volume 91.4 fL (80-94); Mean Platelet Vol. 10.8 fl (6.2-12.0); Monocyte# 0.52 X10^3/uL; Monocyte% 6.6 % (0-10); NRBC Flagged by Analyzer 0 % (0-5); Neutrophil % 79.6 % (47-70); Platelet Count 119 K/mm3 (150-450); RBC Distribution Width CV 13.2 % (11.6-14.6); RBC Distribution Width SD 44.7 fl (35.1-43.9); Red Blood Count 4.55 M/mm3 (4.6-6.2); White Blood Count 7.9 K/mm3 (4.4-11.0)
[2020-03-20] MEDS: Ondansetron 4 MG/2 ML Vial IV (10:08)
[2020-03-20 10:18] LABS: AST(SGOT) 36 U/L (15-37); Alanine Aminotransfer ALT/SGPT 33 U/L (16-61); Albumin, Serum 4.2 g/dL (3.2-5.0); Alkaline Phosphatase 61 U/L (45-117); Anion Gap 7 (5-15); BUN 22 mg/dL (7-18); Calcium,Total 8.8 mg/dL (8.5-10.1); Chloride 108 mmol/L (98-107); EST Glomerular Filtration Rate 80 mL/min (>60); Est Glom Filt Rate - Afr Amer 97 mL/min (>60); Estimated Creatinine Clearance 71.61 ml/min; Globulin 4.1 g/dL (2.2-4.2); Glucose 103 mg/dL (74-106); Potassium 4.3 mmol/L (3.5-5.1); Protein, Total 8.3 g/dL (6.4-8.2); Sodium Level 139 mmol/L (136-145)
[2020-03-20 10:40] LABS: Alcohol, Blood (Medical)-Serum < 3.0 mg/dL
[2020-03-20 15:11] LABS: Color, Urine Yellow (Yellow); Glucose, Dipstick Normal (Normal); Ketone-Dipstick 50 mg/dl (Negative); Leukocyte Esterase-Dipstick 25 /ul (Negative); Nitrite-Dipstick Negative (Negative); Occult Blood-Urine 10 /ul (Negative); Protein-Dipstick 30 mg/dl (Negative); Urine Bilirubin Dipstick Negative (Negative); Urine Clarity Sl. Cloudy (Clear); Urine Urobilinogen Normal (Normal)
[2020-03-20 15:13] LABS: Amphetamine Urine VISTA POSITIVE (<1000 ng/mL); Barbiturate Urine VISTA NEGATIVE (< 200 ng/mL); Benzodiazepine Urine VISTA NEGATIVE (< 200 ng/mL); Cocaine Urine VISTA NEGATIVE (< 300 ng/mL); Ecstacy Urine VISTA POSITIVE (< 500 ng/mL); Methadone Urine VISTA NEGATIVE (< 300 ng/mL); PCP Urine VISTA NEGATIVE (< 25 ng/mL); THC Urine VISTA NEGATIVE (< 50 ng/mL); Vista UDS pH Range 5
[2020-03-20 15:21] LABS: Bacteria 1+ /hpf (None Seen); Hyaline Cast 0-5 SEEN /lpf (0-5); Mucous, Urine 1+ /hpf (<or=2+); Red Blood Cells-Urine 0-5 SEEN /hpf (0-5); Squamous Epithelial Cells - UA 0-5 SEEN /hpf (0-5); White Blood Cells 0-5 SEEN /hpf (0-5)
== END 2020-03-20 17:14 | disposition home or self-care (01) ==
PROVIDERS: Emergency Provider Emergency Medicine; PCP Internal Medicine
DX: F15.121 Other stimulant abuse with intoxication delirium (principal); I44.4 Left anterior fascicular block; F17.200 Nicotine dependence, unspecified, uncomplicated
CPT/HCPCS: 70450; 71045; 80053; 80307; 80320; 81001; 84484; 85025; 87426; 93005; 96372; 96374; 96375; 99285; P9612; A4216; G0480; J2405